=== PATIENT | female | born 1975 | race Two or more races ===

== ENCOUNTER → 2017-01-16 | Outpatient (CLI) | payer OTHER | END | disposition home or self-care (01) | LOC: CFH 13:38 | PROVIDERS: ATTEND Obstetrics & Gynecology | DX: N60.01 Solitary cyst of right breast (principal) | CPT/HCPCS: 76641; G0204 ==

== ENCOUNTER → 2018-09-24 | Outpatient (CLI) | payer OTHER | END | disposition home or self-care (01) | LOC: CFH 08:17 | PROVIDERS: ATTEND Obstetrics & Gynecology | DX: N60.01 Solitary cyst of right breast (principal) | CPT/HCPCS: 76642; 77066; G0279 ==

== ENCOUNTER 2019-11-04 11:11 | Outpatient (CLI) | payer OTHER | END 2019-11-04 23:59 | disposition home or self-care (01) | LOC: CFH 11:11 | PROVIDERS: ATTEND Obstetrics & Gynecology | DX: Z12.31 Encounter for screening mammogram for malignant neoplasm of breast (principal) | CPT/HCPCS: 77063; 77067 ==